=== PATIENT | male | born 1995 | race Caucasian/White ===

== ENCOUNTER 2017-01-24 22:19 | Emergency (ER) | payer OTHER ==
[2017-01-24] MEDS ORDERED: NAPROXEN 250 MG TABLET PO ONE (22:31)
--- NOTE | 2017-01-24 22:36 | Emergency Department Record ---
History of Present Illness - General Chief complaint: Pain Stated complaint: LT SHOULDER DISLOCATED Time Seen by Provider: 01/24/17 22:31 Source: Patient Mode of Arrival: Ambulatory Limitations: No limitations - History of Present Illness Initial comments: 21 yo male presents to ED with a CC of injury to the left shoulder that occurred yesterday. Patient reports that he was throwing a ball when his shoulder "dislocated, and I put it back in". Patient reports that he came to the ED tonight as his pain was still present today, reports that he did take ibuprofen which improved his symptoms earlier tonight. Patient denies health problems at his baseline. MD Complaint: Joint pain Onset/Timin -: Days(s) Location: Left, Shoulder History of Same: No -: Yes Arthralgia Radiation: Proximal Quality: Aching Consistency: Constant Improves with: Rest Worsens with: Other (movement) Associated Symptoms: Denies other symptoms - Related Data Allergies Allergy/AdvReac Type Severity Reaction Status Date / Time No Known Drug Allergies Allergy Verified 01/24/17 22:34 Review of Systems Constitutional: Denies: Chills, Fever, Malaise, Night sweats Eyes: Denies: Eye discharge, Eye pain ENT: Denies: Congestion, Dental pain, Ear pain, Epistaxis Respiratory: Denies: Cough, Dyspnea Cardiovascular: Denies: Chest pain, Dyspnea on exertion Endocrine: Denies: Fatigue, Heat or cold intolerance Gastrointestinal: Denies: Abdominal pain, Nausea, Vomiting Genitourinary: Denies: Incontinence, Retention Musculoskeletal: Reports: Arthralgia. Denies: Back pain, Gout, Joint swelling Skin: Denies: Bruising, Change in color Neurological: Denies: Abnormal gait, Confusion, Headache, Seizure Psychiatric: Denies: Anxiety Hematological/Lymphatic: Denies: Anemia, Blood Clots Physical Exam - General General Appearance: Alert, Oriented x3, Cooperative, No acute distress Limitations: No limitations - Head Head exam: Atraumatic, Normocephalic, Normal inspection Head exam detail: negative: Abrasion, Contusion, Lowe's sign, General tenderness, Hematoma, Laceration - Eye Eye exam: Normal appearance. negative: Conjunctival injection, Periorbital swelling, Periorbital tenderness, Scleral icterus - ENT Ear exam: negative: Auricular hematoma, Auricular trauma Nasal Exam: negative: Active bleeding, Discharge, Dried blood, Foreign body Mouth exam: negative: Drooling, Laceration, Muffled voice, Tongue elevation - Neck Neck exam: Normal inspection. negative: Meningismus, Tenderness - Respiratory Respiratory exam: Normal lung sounds bilaterally. negative: Rales, Respiratory distress, Rhonchi, Stridor - Cardiovascular Cardiovascular Exam: Regular rate, Normal rhythm, Normal heart sounds Peripheral Pulses: 3+: Radial (L) - GI/Abdominal GI/Abdominal exam: Soft. negative: Rebound, Rigid, Tenderness - Rectal Rectal exam: Deferred - exam: Deferred - Extremities Extremities exam: Tenderness, Other (TTP along the posterior left shoulder, FROM actively on examination, able to lift the shoulder well above his head to remove his shit on examination, strong radial pusle, no evidence for AC separation on examination). negative: Calf tenderness, Pedal edema - Back Back exam: Denies: CVA tenderness (R), CVA tenderness (L) - Neurological Neurological exam: Alert, Normal gait, Oriented X3 - Psychiatric Psychiatric exam: Normal affect, Normal mood - Skin Skin exam: Normal color. negative: Abrasion Type of lesion: negative: abrasion Course - Reevaluation(s) Reevaluation #1: 01/24/17 23:22 Left Shoulder: Nothing acute Patient was updated on his radiograph results, will place in a sling with Naprosyn for symptomatic treatment of his shoulder pain symptoms. Patient was counseled regarding movement to prevent a frozen shoulder. Patient appears stable for discharge at this time. Disposition Disposition: Discharge Clinical Impression: Shoulder pain, left Qualifiers: Chronicity: acute Qualified Code(s): M25.512 - Pain in left shoulder Disposition: Home, Self-Care Condition: (2) Stable Instructions: Shoulder Pain (ED) Additional Instructions: Return to ED if your symptoms worsen or if you have any concerns. Naprosyn as directed. Sling as needed Follow-up with your family doctor in 1 week as directed. Forms: Patient Portal Access Time of Disposition: 23:24 Quality - Quality Measures Quality Measures: N/A - Blood Pressure Screening Does Patient Have Any of the Following: No Blood Pressure Classification: Hypertensive Reading Systolic Measurement: 161 Diastolic Measurement: 71 Screening for High Blood Pressure: < First Hypertensive BP, F/U Documented > [ G8950] First Hypertensive Follow-up Interventions: Referral to alternative/primary care provider.
--- NOTE | 2017-01-27 08:58 | RADIOLOGY REPORT ---
EXAM: LEFT SHOULDER HISTORY: INJURY TO LEFT SHOULDER WITH PAIN. TECHNIQUE: Four views of the left shoulder were obtained. Comparison: None. Encounter: Initial. FINDINGS: The left shoulder appears intact with no fracture or dislocation identified. IMPRESSION: THE LEFT SHOULDER APPEARS NEGATIVE. JOB NUMBER: [id number] MTDD
== END 2017-01-24 23:31 | disposition home or self-care (01) ==
LOC: ER 22:19
DX: M25.512 Pain in left shoulder (principal)
CPT/HCPCS: 99283

== ENCOUNTER 2017-02-09 22:42 | Emergency (ER) | payer OTHER ==
--- NOTE | 2017-02-09 23:51 | Emergency Department Record ---
History of Present Illness - General Chief Complaint: Ankle/Foot Injury Stated Complaint: RT ANKLE INJURY Time Seen by Provider: 02/09/17 23:15 Source: Patient Mode of Arrival: Ambulatory Limitations: No limitations - History of Present Illness Initial Comments: pt stepped in a hole and injured ankle tonight. difficult to bear weight. MD Complaint: Ankle injury Onset/Timin -: Hour(s) Injury: Ankle: Right Type of Injury: Inversion Place: Home, Street/outdoors Severity: Mild Severity scale (1-10): 8 Improves With: NSAID Worsens With: Movement, Weight bearing Context: Fall, Jumping Other Symptoms: Chest pain Associated Symptoms: Numbness, Snap/pop sensation, Swelling, Able to partially bear weight Treatments Prior to Arrival: NSAIDS - Related Data Home Medications Medication Instructions Recorded Confirmed Last Taken No Home Med [NO HOME MEDS] 02/09/17 02/09/17 Unknown Allergies Allergy/AdvReac Type Severity Reaction Status Date / Time No Known Drug Allergies Allergy Verified 01/24/17 22:34 Travel Screening - Travel/Exposure Within Last 30 Days Have you traveled within the last 30 days?: No - Travel/Exposure Within Last Year Have you traveled outside the [place] in the last year?: No - Additonal Travel Details Have you been exposed to anyone with a communicable illness?: No - Travel Symptoms Symptom Screening: None Review of Systems Reviewed: No additional complaints except as noted below Constitutional: Reports: As per HPI. Denies: Chills, Fever, Malaise, Night sweats, Weakness, Weight change Eyes: Reports: As per HPI. Denies: Eye discharge, Eye pain, Photophobia, Vision change ENT: Reports: As per HPI. Denies: Congestion, Dental pain, Ear pain, Epistaxis , Hearing loss, Throat pain Respiratory: Reports: As per HPI. Denies: Cough, Dyspnea, Hemoptysis, Stridor, Wheezes Cardiovascular: Reports: As per HPI. Denies: Arrhythmia, Chest pain, Dyspnea on exertion, Edema, Murmurs, Orthopnea, Palpitations, Paroxysmal nocturnal dyspnea, Rheumatic Fever, Syncope Endocrine: Reports: As per HPI. Denies: Fatigue, Heat or cold intolerance, Polydipsia, Polyuria Gastrointestinal: Reports: As per HPI. Denies: Abdominal pain, Constipation, Diarrhea, Hematemesis, Hematochezia, Melena, Nausea, Vomiting Genitourinary: Reports: As per HPI. Denies: Dysuria, Frequency, Hematuria, Incontinence, Retention, Testicular pain, Testicular mass, Urgency Musculoskeletal: Reports: As per HPI. Denies: Arthralgia, Back pain, Gout, Joint swelling, Myalgia, Neck pain Skin: Reports: As per HPI. Denies: Bruising, Change in color, Change in hair/ nails, Lesions, Pruritus, Rash Neurological: Reports: As per HPI. Denies: Abnormal gait, Confusion, Headache, Numbness, Paresthesias, Seizure, Tingling, Tremors, Vertigo, Weakness Psychiatric: Reports: As per HPI. Denies: Anxiety, Auditory hallucinations, Depression, Homicidal thoughts, Suicidal thoughts, Visual hallucinations Hematological/Lymphatic: Reports: As per HPI. Denies: Anemia, Blood Clots, Easy bleeding, Easy bruising, Swollen glands Past Medical History - SOCIAL HISTORY Smoking Status: Never smoker Alcohol Use: None Drug Use: None - RESPIRATORY Hx Respiratory Disorders: No - CARDIOVASCULAR Hx Cardio Disorders: No - NEURO Hx Neuro Disorders: No - GI Hx GI Disorders: No - Hx Genitourinary Disorders: No - ENDOCRINE Hx Endocrine Disorders: No - MUSCULOSKELETAL Hx Musculoskeletal Disorders: Yes Comment:: broken right ankle - PSYCH Hx Psych Problems: No - HEMATOLOGY/ONCOLOGY Hx Hematology/Oncology Disorders: No Family Medical History Any Significant Family History?: No Physical Exam - General General Appearance: Alert, Oriented x3, Cooperative, Mild distress - Head Head exam: Normal inspection - Eye Eye exam: Normal appearance, PERRL, EOMI Pupils: Normal accommodation - ENT ENT exam: Normal exam, Mucous membranes moist, Normal external ear exam, Normal orophraynx, TM's normal bilaterally Ear exam: Normal external inspection. negative: External canal tenderness Nasal Exam: Normal inspection. negative: Discharge, Sinus tenderness Mouth exam: Normal external inspection, Tongue normal Teeth exam: Normal inspection. negative: Dental caries Throat exam: Normal inspection. negative: Tonsillar erythema, Tonsillar exudate - Neck Neck exam: Normal inspection, Full ROM. negative: Tenderness - Respiratory Respiratory exam: Normal lung sounds bilaterally. negative: Respiratory distress - Cardiovascular Cardiovascular Exam: Regular rate, Normal rhythm, Normal heart sounds - GI/Abdominal GI/Abdominal exam: Soft, Normal bowel sounds. negative: Tenderness - Rectal Rectal exam: Deferred - exam: Deferred - Extremities Extremities exam: Normal capillary refill, Tenderness. negative: Normal inspection, Full ROM Image of Feet: 1 - swelling - Back Back exam: Reports: Normal inspection, Full ROM. Denies: Muscle spasm, Rash noted, Tenderness - Neurological Neurological exam: Alert, CN II-XII intact, Normal gait, Oriented X3 - Psychiatric Psychiatric exam: Normal affect, Normal mood - Skin Skin exam: Dry, Intact, Normal color, Warm Course Vital Signs 02/09/17 22:55 Temperature 98.9 F Pulse Rate [ 90 Pulse Ox Probe] Respiratory 22 Rate Blood Pressure 140/67 [Left Arm] Pulse Ox 98 Disposition Disposition: Discharge Clinical Impression: Ankle sprain Qualifiers: Encounter type: initial encounter Involved ligament of ankle: unspecified ligament Laterality: right Qualified Code(s): S93.401A - Sprain of unspecified ligament of right ankle, initial encounter Disposition: Home, Self-Care Condition: (1) Good Instructions: Ankle Sprain (ED), Ankle Sprain Exercises (GEN) Additional Instructions: follow up with family doctor. ice and elevate. return sooner if worse. motrin with food Forms: Patient Portal Access Quality - Quality Measures Quality Measures: N/A - Blood Pressure Screening Does Patient Have Any of the Following: No Blood Pressure Classification: Hypertensive Reading Systolic Measurement: 140 Diastolic Measurement: 67 Screening for High Blood Pressure: < Pre-Hypertensive BP, F/U Documented > [ G8950] Pre-Hypertensive Follow-up Interventions: Follow-up with rescreen every year.
--- NOTE | 2017-02-10 13:14 | RADIOLOGY REPORT ---
EXAM: RIGHT ANKLE HISTORY: PATIENT JUMPED OFF A PORCH TONIGHT TWISTING ANKLE WITH PAIN IN THE RIGHT ANKLE LATERALLY AND POSTERIORLY. TECHNIQUE: Three views of the right ankle were obtained. Comparison: None. Encounter: Initial. FINDINGS: Soft tissue swelling is seen particularly laterally. The underlying bone appear intact with no definite fracture or dislocation of the right ankle identified. IMPRESSION: 1. SOFT TISSUE SWELLING PARTICULARLY LATERALLY. 2. NO DEFINITE FRACTURE OF THE RIGHT ANKLE IDENTIFIED. JOB NUMBER: [id number] MTDD
== END 2017-02-10 00:05 | disposition home or self-care (01) ==
LOC: ER 22:42
DX: S93.401A Sprain of unspecified ligament of right ankle, initial encounter (principal); R20.0 Anesthesia of skin; X50.0XXA Overexertion from strenuous movement or load, initial encounter; Y92.410 Unspecified street and highway as the place of occurrence of the external cause
CPT/HCPCS: 99283

== ENCOUNTER 2017-11-14 23:31 | Emergency (ER) | payer OTHER ==
--- NOTE | 2017-11-14 23:45 | Emergency Department Record ---
History of Present Illness - General Chief complaint: Extremity Problem Stated complaint: R WRIST INJ Time Seen by Provider: 11/14/17 23:41 Source: Patient Mode of Arrival: Ambulatory Limitations: No limitations - History of Present Illness Initial comments: The patient was playing football and injured his R wrist. He was tackling a player and then got hit and landed funny on the wrist while rotating it. Since it has been painful. Complaint: Extremity pain Onset/Timin -: Hour(s) - Related Data Allergies Allergy/AdvReac Type Severity Reaction Status Date / Time No Known Drug Allergies Allergy Verified 01/24/17 22:34 Review of Systems Constitutional: Denies: Chills, Fever Past Medical History - SOCIAL HISTORY Smoking Status: Never smoker Drug Use: None - RESPIRATORY Hx Respiratory Disorders: No - CARDIOVASCULAR Hx Cardio Disorders: No - NEURO Hx Neuro Disorders: No - GI Hx GI Disorders: No - Hx Genitourinary Disorders: No - ENDOCRINE Hx Endocrine Disorders: No - MUSCULOSKELETAL Hx Musculoskeletal Disorders: Yes Comment:: broken right ankle - PSYCH Hx Psych Problems: No - HEMATOLOGY/ONCOLOGY Hx Hematology/Oncology Disorders: No Physical Exam - General General Appearance: Alert, Oriented x3, Cooperative, No acute distress - Head Head exam: Atraumatic, Normocephalic, Normal inspection - Eye Eye exam: Normal appearance, PERRL - Extremities Extremities exam: Normal inspection, Full ROM, Tenderness (There is mild dorsal R wrist tenderness mainly over the distal ulna. There is no ligamentous laxity.) . negative: Joint swelling - Neurological Neurological exam: Alert. negative: Motor sensory deficit Course - Reevaluation(s) Reevaluation #1: I explained to the patient that I do not see any acute injury on the xrays. We will splint the wrist and have the patient F/U with his PCP if not better in 10 days. 11/15/17 00:01 Medical Decision Making - Data Complexity MDM Data: X-Ray Ordered and/or Reviewed - Radiology Data Radiology results: Report reviewed (R Wrist: Old ulna styloid fx, Neg for acute changes.) Disposition Disposition: Discharge Clinical Impression: Right wrist sprain Qualifiers: Encounter type: initial encounter Qualified Code(s): S63.501A - Unspecified sprain of right wrist, initial encounter Disposition: Home, Self-Care Condition: (2) Stable Instructions: Wrist Sprain (ED) Additional Instructions: Please wear the splint for 7-10 days. Please use Motrin or Advil for pain and ice the wrist if possible the next 2 days. Please see your family doctor if not better in 10 days. Forms: Patient Portal Access Time of Disposition: 00:03 Quality - Quality Measures Quality Measures: N/A - Blood Pressure Screening View Details: Yes Does Patient Have Any of the Following: No Blood Pressure Classification: Hypertensive Reading Systolic Measurement: 156 Diastolic Measurement: 91 Screening for High Blood Pressure: < First Hypertensive BP, F/U Documented > [ G8950] First Hypertensive Follow-up Interventions: Referral to alternative/primary care provider.
--- NOTE | 2017-11-16 09:49 | RADIOLOGY REPORT ---
EXAM: RIGHT WRIST HISTORY: WRIST PAIN. TECHNIQUE: Four views of the right wrist were obtained. Comparison: None. Encounter: Initial. FINDINGS: Negative for an acute fracture or dislocation. Old fracture deformity of the ulnar styloid. The soft tissues are unremarkable. IMPRESSION: NO ACUTE OSSEOUS ABNORMALITY. JOB NUMBER: [id number] MTDD
== END 2017-11-15 00:10 | disposition home or self-care (01) ==
LOC: ER 23:31
DX: S63.501A Unspecified sprain of right wrist, initial encounter (principal); W03.XXXA Other fall on same level due to collision with another person, initial encounter; Y93.61 Activity, american tackle football
CPT/HCPCS: 99283